=== PATIENT | male | born 1965 | race Caucasian/White ===

== ENCOUNTER → 2018-07-15 | Outpatient (CLI) | payer BC ==
--- NOTE | 2018-07-15 15:27 | Diagnostic Imaging Report ---
EXAMINATION: Renal ultrasound. CLINICAL HISTORY :Dizziness, hypertension COMPARISON: <None available.> TECHNIQUE: Grayscale and color Doppler evaluation of the kidneys and bladder was performed in transverse and longitudinal planes. DISCUSSION: RIGHT KIDNEY: The right kidney measures 11.7 cm in length and shows normal echogenicity. No hydronephrosis, shadowing calculi or solid mass lesions. LEFT KIDNEY: The left kidney measures 12.6 cm in length and shows normal echogenicity. No hydronephrosis, shadowing calculi or solid mass lesions. BLADDER: Unremarkable. Prevoid 50 cc. Postvoid negligible. Prior prostatectomy. IMPRESSION: 1. Normal sonographic appearance of the kidneys. Signed by: Dr. Norberto Kennedy M.D. on 07/15/2018 3:23 PM
== END ==
LOC: RAD 13:13
DX: I10 Essential (primary) hypertension (principal); R42 Dizziness and giddiness
CPT/HCPCS: 76770; 93306; 93880

== ENCOUNTER 2019-04-30 09:26 | Emergency (ER) | payer BC ==
[~2019-04-30] VITALS: Ht 175.3 cm; Wt 99.8 kg
--- OUTSIDE RECORDS SUMMARY | 2019-04-30 09:28 | XMS REPORT ---
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 Allergies, Adverse Reactions, Alerts This patient has no known allergies or adverse reactions. Medications This patient has no known medications. Results Test Description Test Time Test Comments Text Results Atomic Results Result Comments US RENAL RETROPERITONEAL COMP 2018-07-15 15:22:00 [place] [address] Patient Name: DIVYA CASON MR #: [id number] : 1965 Age/Sex: 53/M Req #: [id number] Adm Physician: Ordered by: CHENCHO FERNANDO MD Report #: [id number] Location: [facility] Room/Bed: Procedure: [id number] US/US RENAL RETROPERITONEAL COMP Exam Date: 07/15/18 Exam Time: 1440 REPORT STATUS: Signed EXAMINATION: Renal ultrasound. CLINICAL H ISTORY :Dizziness, hypertension COMPARISON: <None available.> TECHNIQUE: Grayscale and color Doppler evaluation of the kidneys and bladder was performed in transverse and longitudinal planes. DISCUSSION: RIGHT KIDNEY: The right kidney measures 11.7 cm in length and shows normal echogenicity. No hydronephrosis, shadowing calculi or solid mass lesions. LEFT KIDNEY: The left kidney measures 12.6 cm in length and shows normal echogenicity. No hydronephrosis, shadowing calculi or solid mass lesions. BLADDER: Unremarkable. Prevoid 50 cc. Postvoid negligible. Prior prostatectomy. IMPRESSION: 1. Normal sonographic appearance of the kidneys. Signed by: Dr. Colin Pop M.D. on 07/15/2018 3:23 PM Dictated By: COLIN POP MD [id number] Transcribed By: CARMELITA on 07/15/18 1523 COPY TO: CHENCHO FERNANDO MD
[2019-04-30] MEDS ORDERED: HYDROCODONE/APAP 10MG-325MG TAB PO ONE (10:00)
[2019-04-30] MEDS ORDERED: DIAZEPAM 5 MG TAB PO ONE (10:00)
[2019-04-30] MEDS ORDERED: KETOROLAC TROMETHAMINE 60 MG/2 ML VIAL IM ONE (10:00)
[2019-04-30] MEDS ORDERED: VERAPAMIL HCL 180 MG TBER PO ONE (10:15)
--- NOTE | 2019-04-30 11:11 | Diagnostic Imaging Report ---
EXAMINATION: SP LUMBAR, COMPLETE MIN 4VW INDICATION: Lower back pain COMPARISON: None FINDINGS: AP, lateral and oblique images of the lumbar spine were obtained. No compression fracture. Vertebral body heights are well-maintained. Mild multilevel lumbar spine degenerative changes. Alignment is anatomic. Nonobstructive bowel gas pattern. Small phleboliths in the pelvis. No free air. IMPRESSION: No compression fracture. Anatomic alignment. Mild multilevel degenerative changes. Signed by: Porfirio Calderon MD on 04/30/2019 11:07 AM
[2019-04-30 11:43] VITALS: BP 156/100
== END 2019-04-30 11:48 | disposition home or self-care (01) ==
LOC: ER 09:26
DX: S39.012A Strain of muscle, fascia and tendon of lower back, initial encounter (principal); X50.1XXA Overexertion from prolonged static or awkward postures, initial encounter; Y92.008 Other place in unspecified non-institutional (private) residence as the place of occurrence of the external cause; I10 Essential (primary) hypertension
CPT/HCPCS: 72110; 99283; J1885

== ENCOUNTER → 2020-06-29 | Outpatient (CLI) | payer OTHER ==
[~2020-06-29] MED LIST: COVID-19 VACC, MRNA(MODERNA)/PF 100 MCG/0.5 ML VIAL IM ONE
== END ==
LOC: VACCPMC 15:59
DX: Z23 Encounter for immunization (principal); Z20.828 Contact with and (suspected) exposure to other viral communicable diseases

== ENCOUNTER → 2020-08-03 | Outpatient (CLI) | payer OTHER | END | DRG 951 | LOC: VACCPMC 07:57 | DX: Z23 Encounter for immunization (principal); Z20.822 Contact with and (suspected) exposure to COVID-19 | CPT/HCPCS: 0012A; 91301 ==

== ENCOUNTER → 2021-09-15 | Outpatient (CLI) | payer BC, OTHER | LOC: MRI 13:16 | PROVIDERS: ATTEND Orthopaedic Surgery | DX: S83.231A Complex tear of medial meniscus, current injury, right knee, initial encounter (principal) ==

== ENCOUNTER 2022-08-27 13:35 | Outpatient (RCR) | payer BC | END 2022-08-28 | LOC: PT 13:35 | PROVIDERS: ATTEND Family Medicine Sports Medicine | DX: M25.512 Pain in left shoulder (principal); M54.2 Cervicalgia; M54.6 Pain in thoracic spine ==

== ENCOUNTER 2023-12-27 10:46 | Outpatient (RCR) | payer BC ==
[~2023-12-27 10:46] MED LIST changes: +ASPIRIN81 MG PO; -COVID-19 VACC, MRNA(MODERNA)/PF 100 MCG/0.5 ML VIAL IM ONE; +HYDROCODON-ACE1 EA12 PO; +LEXAPRO20 MG PO; +LOSARTAN POTAS100 MG PO; +NAPROXEN250 MG PO; +TYLENOL325 MG PO
== END 2023-12-29 ==
LOC: PT 10:46
PROVIDERS: ATTEND Physician Assistant
DX: Z47.1 Aftercare following joint replacement surgery (principal); Z96.651 Presence of right artificial knee joint; M62.81 Muscle weakness (generalized); M25.561 Pain in right knee

== ENCOUNTER 2024-01-22 09:00 | Outpatient (RCR) | payer BC | END 2024-01-29 | LOC: PT 09:00 | PROVIDERS: ATTEND Physician Assistant | DX: Z47.1 Aftercare following joint replacement surgery (principal); Z96.651 Presence of right artificial knee joint ==

== ENCOUNTER 2024-02-25 09:00 | Outpatient (RCR) | payer BC | END 2024-02-29 | LOC: PT 09:00 | PROVIDERS: ATTEND Physician Assistant | DX: M25.561 Pain in right knee (principal) ==

== ENCOUNTER 2024-03-05 07:40 | Outpatient (RCR) | payer BC | END 2024-03-30 | LOC: PT 07:40 | PROVIDERS: ATTEND Physician Assistant | DX: M17.11 Unilateral primary osteoarthritis, right knee (principal) ==